=== PATIENT | male | born 1970 | race Two or more races ===

== ENCOUNTER 2020-07-03 17:12 | Outpatient (REF) | payer OTHER, SELFPAY | END 2020-07-03 17:13 | disposition home or self-care (01) | LOC: HO.LAB 17:12 | PROVIDERS: PCP Internal Medicine; Visit Provider Internal Medicine | DX: Z20.828 Contact with and (suspected) exposure to other viral communicable diseases (principal) | CPT/HCPCS: 36415; C9803; U0003 ==

== ENCOUNTER 2020-07-16 14:27 | Outpatient (REF) | payer OTHER, SELFPAY | END 2020-07-16 14:28 | disposition home or self-care (01) | LOC: HO.LAB 14:27 | PROVIDERS: PCP Internal Medicine; Visit Provider Internal Medicine | DX: Z20.822 Contact with and (suspected) exposure to COVID-19 (principal) | CPT/HCPCS: 36415; C9803; U0003 ==

== ENCOUNTER 2020-10-04 18:44 | Outpatient (REF) | payer OTHER, SELFPAY ==
[2020-10-04 19:29] LABS: Influenza A PCR NEGATIVE (Negative); Influenza B PCR NEGATIVE (Negative); Resp Syncy Virus RNA Qual PCR NEGATIVE (Negative); SARS COV2 PCR INHOUSE NEGATIVE (Negative)
== END 2020-10-04 18:45 | disposition home or self-care (01) ==
LOC: HO.LNP 18:44
PROVIDERS: Visit Provider Family Medicine
DX: Z20.822 Contact with and (suspected) exposure to COVID-19 (principal); J02.9 Acute pharyngitis, unspecified
CPT/HCPCS: 0241U

== ENCOUNTER 2021-09-15 19:36 | Emergency (ER) | payer MEDICARE, MEDICAID, SELFPAY | END 2021-09-15 20:08 | disposition left against medical advice (07) | PROVIDERS: Emergency Provider Emergency Medicine; PCP Internal Medicine | DX: S05.90XA Unspecified injury of unspecified eye and orbit, initial encounter (principal); X58.XXXA Exposure to other specified factors, initial encounter; Y93.9 Activity, unspecified; Y92.9 Unspecified place or not applicable; Y99.9 Unspecified external cause status ==

== ENCOUNTER 2021-09-22 12:21 | Outpatient (REF) | payer MEDICARE, MEDICAID, SELFPAY ==
[2021-09-22 12:37] LABS: MANUAL DIFF FLAG NO
[2021-09-22 12:49] LABS: Basophils Percent Auto 0.2 % (0-2); Eosinophils Absolute Auto 0.1 X10*3/uL (0.0-0.4); Eosinophils Percent Auto 1.3 % (0-4); Hematocrit 43.9 % (42.0-52.0); Hemoglobin 14.9 g/dl (14.0-18.0); Imm Gran Abs Auto 0.01 X10*3/uL (0.00-0.03); Imm Gran Pct Auto 0.2 % (0.0-0.4); Lymphocytes Absolute Auto 2.7 X10*3/uL (1.2-4.9); Mean Corpuscular HGB Conc 33.9 g/dl (31.0-36.0); Mean Corpuscular Hemoglobin 30.3 pg (27.0-33.0); Mean Corpuscular Volume 89.4 fL (80.0-98.0); Mean Platelet Volume 9.3 fL (9.4-12.4); Monocytes Absolute Auto 0.4 X10*3/uL (0.1-1.2); Monocytes Percent Auto 8.4 % (2-11); Neutrophils Percent Auto 37.9 % (45-73); Platelet Count 216 X10*3/uL (160-400); Red Blood Count 4.91 X10*6/uL (4.60-5.80); Red Cell Distribution Width 12.1 % (11.0-16.0); White Blood Count 5.2 X10*3/uL (4.8-10.8)
[2021-09-22 13:45] LABS: Alanine Aminotransferase 21 U/L (0-40); Albumin Level 4.4 g/dL (3.5-5.0); Alkaline Phosphatase 64 U/L (39-117); Anion Gap 9 (12-20); Aspartate Amino Transferase 26 U/L (5-37); Bilirubin Total 1.3 mg/dL (0.0-1.0); Blood Urea Nitrogen 6 mg/dL (9-16); Calcium 9.7 mg/dL (8.4-10.2); Carbon Dioxide 30 mmol/L (22-29); Chloride 102 mmol/L (96-108); Cholesterol 215 mg/dL; Estimated Glomerular Filt Rate 59; Glucose Fasting 166 mg/dL (60-99); HDL Cholesterol 38 mg/dL; LDL Cholesterol Calculated 136 mg/dl; Potassium 4.1 mmol/L (3.3-5.1); Sodium 137 mmol/L (135-145); Total Protein 7.6 g/dL (6.5-8.0); Triglycerides 209 mg/dL
== END 2021-09-22 12:22 | disposition home or self-care (01) ==
LOC: HO.LAB 12:21
PROVIDERS: PCP Internal Medicine; Visit Provider Internal Medicine
DX: E66.9 Obesity, unspecified (principal); E78.5 Hyperlipidemia, unspecified; D64.9 Anemia, unspecified
CPT/HCPCS: 36415; 80053; 80061; 85025

== ENCOUNTER 2022-06-08 15:50 | Outpatient (REF) | payer MEDICARE, MEDICAID, SELFPAY ==
[2022-06-09 13:25] LABS: Influenza A PCR NEGATIVE (Negative); Influenza B PCR NEGATIVE (Negative); Resp Syncy Virus RNA Qual PCR NEGATIVE (Negative); SARS COV2 PCR INHOUSE NEGATIVE (Negative)
== END 2022-06-08 15:51 | disposition home or self-care (01) ==
LOC: HO.LAB 15:50
PROVIDERS: Visit Provider Nurse Practitioner Family
DX: Z20.822 Contact with and (suspected) exposure to COVID-19 (principal); J06.9 Acute upper respiratory infection, unspecified
CPT/HCPCS: 0241U

== ENCOUNTER 2022-09-10 16:27 | Outpatient (REF) | payer MEDICARE, MEDICAID, SELFPAY ==
[2022-09-11 15:06] LABS: Influenza A PCR NEGATIVE (Negative); Influenza B PCR NEGATIVE (Negative); Resp Syncy Virus RNA Qual PCR NEGATIVE (Negative); SARS COV2 PCR INHOUSE NEGATIVE (Negative)
== END 2022-09-10 16:28 | disposition home or self-care (01) ==
LOC: HO.LAB 16:27
PROVIDERS: Visit Provider Nurse Practitioner Family
DX: Z20.822 Contact with and (suspected) exposure to COVID-19 (principal); B34.9 Viral infection, unspecified; J02.0 Streptococcal pharyngitis
CPT/HCPCS: 0241U

== ENCOUNTER 2022-12-23 14:53 | Outpatient (REF) | payer MEDICARE, MEDICAID, SELFPAY ==
--- NOTE | ~2022-12-23 | US_ITS ---
EXAMINATION: US VENOUS ULTRASOUND WITH DOPPLER LOWER EXTREMITY, LEFT CLINICAL INFORMATION: Left leg pain. COMPARISON: None available. TECHNIQUE: Ultrasound of the deep veins is performed from the hip to the calf with compression sonography and color and pulse Doppler assessment. Spectral analysis with color-flow imaging is performed. FINDINGS: There is normal venous compression and respiratory variation and augmented flow. The visualized common femoral vein, superficial femoral vein, profunda femoral vein, popliteal vein, and the trifurcation region shows no evidence of deep venous thrombosis. The area of pain left lateral midcalf was sonographically interrogated. There is no focal sonographic abnormality. If the patient's symptoms persist, followup ultrasound in 5 days 7 days might be of value to exclude proximal propagation from a non-visualized calf vein. US/US venous duplex LE IMPRESSION: No DVT demonstrated in the left lower extremity.
== END 2022-12-23 14:54 | disposition home or self-care (01) ==
LOC: HO.US 14:53
PROVIDERS: PCP Internal Medicine; Visit Provider Internal Medicine
DX: M79.605 Pain in left leg (principal)
CPT/HCPCS: 93971

== ENCOUNTER 2023-02-24 16:56 | Outpatient (AMB) | payer MEDICARE, MEDICAID, SELFPAY ==
--- NOTE | 2023-02-24 16:59 | A.OFFPC_ITS ---
Vital Signs 02/24/23 17:00 Height 5 ft 9 in Weight 248 lb BMI 36.6 BP 130/82 Blood Pressure Location Lt brachial Position Sitting Intake Visit Reasons: Nasal congestion/pain Intake Note: Patient here for nasal congestion/ pain Nps Required: No Accompanied by: Self / Same As Patient Allergies No Known Allergies [No Known Allergies*] Allergy (Verified 02/24/23 17:11) Medication List - Last Reconciled 02/24/23 by Michelle Watson MD albuterol sulfate 2.5 mg (3 mL) inhalation Q6H PRN 30 days bisacodyl 20 mg PO DIRECTED blood sugar diagnostic (FreeStyle Lite Strips) Use 1 test strip once a day blood-glucose meter (FreeStyle Lite Meter kit) As directed clonazepam 2 mg PO BID 30 days clotrimazole 1% (Athlete's Foot (clotrimazole)) 1 appl topical BID 2 weeks diclofenac sodium 1% 2 grams topical QID 30 days escitalopram oxalate 10 mg PO DAILY 90 days famotidine 20 mg PO BEDTIME 90 days fluticasone propionate 50 mcg/actuation 1 spray intranasal DAILY 30 days fluticasone propionate 110 mcg/actuation 2 puffs PO BID 30 days ibuprofen 800 mg PO TID PRN lancets (FreeStyle Lancets) Use 2 lancet once a day levalbuterol tartrate 45 mcg/actuation 2 inhalations inhalation Q6H 30 days montelukast 10 mg PO BEDTIME 90 days nebulizers As directed omeprazole 20 mg PO QAM 90 days ondansetron HCl 4 mg PO BID PRN 30 days oxycodone-acetaminophen 10-325 mg tabs PO sumatriptan succinate 100 mg PO DAILY PRN 90 days trazodone 50 mg PO BEDTIME PRN 90 days zolpidem 10 mg PO BEDTIME PRN 30 days Tobacco use date assessed: 12/23/22 Dental Screening Dental Screen Date: 02/24/23 Did you have a dental visit in the last 12 months?: No Did you have a dental problem in the last 6 months where you did not have access to dental care?: No Was dental information given to patient?: Patient has dentist HPI HPI Comments History of Present Illness Details This is a 52-year-old male with GERD, anxiety and mild recurrent major depression that complains sinus tenderness and nasal congestion that started about a week ago. Will start doxycycline. No fever or cough. Depression stable with escitalopram. Anxiety stable with benzodiazepines as needed. GERD stable with PPIs. [facility] Medical History Anxiety Asthma Back pain Fissure in ano Insomnia Migraines Mild recurrent major depression Mixed hyperlipidemia Obesity (BMI 30-39.9) Screen for colon cancer Sinusitis Surgical History History of back surgery Hx of cataract surgery Family History Father No problems noted. Mother No problems noted. Social History Housing: Apartment Alcohol intake: former Patient Tobacco Use Status: Never used Tobacco e-Cigarette/Vaping Use: Never Used Second Hand Smoke Exposure: No service: No Current occupational status: disabled Cognitive needs: No Hearing needs: No Vision needs: No Questionnaire Thrive Questionnaire Date Thrive assessed: 12/23/22 LUISA-7 AMB Questionnaire LUISA-7 Date LUISA - 7 assessed: 12/23/22 Source: Developed by Drs. Bipin Bach, Gifty Rasmussen, Marc Arzola and colleagues, with an educational pa from [employer]. Review of Systems Const All systems reviewed & are unremarkable except as noted in HPI and below Eyes Reports no additional complaints, Denies change in vision and Denies other visual disturbances Card Denies chest pain at rest, Denies chest pain with activity, Denies edema, Denies irregular heart rhythm, Denies claudication, Denies dyspnea, Denies dyspnea on exertion, Denies orthopnea, Denies paroxysmal nocturnal dyspnea and Denies slow heart rate Resp Denies cough, Denies dyspnea and Denies dyspnea on exertion GI Denies abdominal pain, Denies change in bowel habits, Denies excessive flatus, Denies nausea and Denies vomiting Denies urinary hesitancy, Denies urinary incontinence and Denies urinary urgency Musc Denies abnormal gait, Denies atrophy, Denies deformity and Denies limited range of motion Skin/Breast Denies bleeding lesions, Denies changing lesions and Denies rash Neuro Denies abnormal gait and Denies lack of coordination Physical exam (Primary Care) Vital Signs: Last Vital Signs BP 130/82 02/24/23 17:00 BMI result Body Mass Index 36.6 Tobacco/Smoking Status: Tobacco use Status Tobacco use date assessed 12/23/22 02/24/23 17:04 Patient Tobacco Use Status Never used Tobacco 02/24/23 17:04 e-Cigarette/Vaping Use Never Used 02/24/23 17:04 Thrive Assessment: Date of Thrive Assessment Date Thrive assessed 12/23/22 02/24/23 17:04 Eyes General: appearance normal, both eyes and all related structures Eyelids: Yes eyelids normal Conjunctivae: conjunctivae normal Neck Neck: Yes normal visual inspection and Yes supple Resp Effort & Inspection: normal respiratory effort Auscultation: clear to auscultation bilaterally Cardio Jugular venous distension: no JVD Rate: regular rate Rhythm: regular rhythm Heart sounds: S1 normal heart sound present and S2 normal heart sound present Extrem General: Yes full ROM Assessment and Plan Assessment & Plan (1) Chronic GERD: Code(s): K21.9 - Gastro-esophageal reflux disease without esophagitis Plan: Continue PPIs (2) Mild recurrent major depression: Code(s): F33.0 - Major depressive disorder, recurrent, mild Plan: Continue escitalopram (3) Sinus infection: Code(s): J32.9 - Chronic sinusitis, unspecified Qualifiers: Sinusitis location: frontal Chronicity: subacute Qualified Code(s): J01.10 - Acute frontal sinusitis, unspecified Plan: Start doxycycline (4) Anxiety: Code(s): F41.9 - Anxiety disorder, unspecified Plan: Continue benzodiazepines as needed Orders: Orders XR sinus <3V Today J34.89 - Other specified disorders of nose and nasal sinuses Comprehensive [place]. Panel Fast 4 Months K21.9 - Gastro-esophageal reflux disease without esophagitis Lipid Panel 4 Months E78.5 - Hyperlipidemia, unspecified Medications: New doxycycline hyclate 100 mg PO BID 5 days 10 tabs 0RF cetirizine (All Day Allergy (cetirizine)) 10 mg PO DAILY 90 days PRN 90 tabs 1RF allergy symptoms Coding Level of Care Code Est Pt Level 4 (71041) Diagnoses Chronic GERD K21.9 Mild recurrent major depression F33.0 Sinus infection J01.10 Sinusitis location: frontal Chronicity: subacute Anxiety F41.9 Time Spent (min) 23
[2023-02-24 17:00] VITALS: BP 130/82; BMI 36.6
== END 2023-02-24 17:29 | disposition home or self-care (01) ==
PROVIDERS: PCP Internal Medicine; Visit Provider Internal Medicine
DX: K21.9 Gastro-esophageal reflux disease without esophagitis (principal); F33.0 Major depressive disorder, recurrent, mild; J01.10 Acute frontal sinusitis, unspecified; F41.9 Anxiety disorder, unspecified
CPT/HCPCS: 99214

== ENCOUNTER 2023-06-01 17:20 | Outpatient (AMB) | payer MEDICARE, MEDICAID, SELFPAY ==
[2023-06-01 17:28] VITALS: BP 110/78; BMI 35.7
--- NOTE | 2023-06-01 17:28 | MHC.PC.OV ---
Vital Signs 06/01/23 17:28 Height 5 ft 9 in Weight 242 lb BMI 35.7 BP 110/78 Blood Pressure Location Lt brachial Position Sitting Intake Visit Reasons: Annual Exam Intake Note: Patient here for an annual physical exam [place] Required: No Accompanied by: Self / Same As Patient Allergies No Known Allergies [No Known Allergies*] Allergy (Verified 06/01/23 17:39) Medication List - Last Reconciled 06/01/23 by Michelle Watson MD albuterol sulfate 2.5 mg (3 mL) inhalation Q6H PRN 30 days blood sugar diagnostic (FreeStyle Lite Strips) Use 1 test strip once a day blood-glucose meter (FreeStyle Lite Meter kit) As directed cetirizine (All Day Allergy (cetirizine)) 10 mg PO DAILY PRN 90 days clonazepam 2 mg PO BID 30 days clotrimazole 1% (Athlete's Foot (clotrimazole)) 1 appl topical BID 2 weeks diclofenac sodium 1% 2 grams topical QID 30 days escitalopram oxalate 10 mg PO DAILY 90 days famotidine 20 mg PO BEDTIME 90 days fluticasone propionate 110 mcg/actuation 2 puffs PO BID 30 days fluticasone propionate 50 mcg/actuation 1 spray intranasal DAILY 30 days ibuprofen 800 mg PO TID PRN lancets (FreeStyle Lancets) Use 2 lancet once a day levalbuterol tartrate 45 mcg/actuation 2 inhalations inhalation Q6H 30 days montelukast 10 mg PO BEDTIME 90 days nebulizers As directed omeprazole 20 mg PO QAM 90 days ondansetron HCl 4 mg PO BID PRN 30 days oxycodone-acetaminophen 10-325 mg tabs PO sumatriptan succinate 100 mg PO DAILY PRN 90 days trazodone 50 mg PO BEDTIME PRN 90 days zolpidem 10 mg PO BEDTIME PRN 30 days Tobacco use date assessed: 12/23/22 Dental Screening Dental Screen Date: 06/01/23 Did you have a dental visit in the last 12 months?: No Did you have a dental problem in the last 6 months where you did not have access to dental care?: No Was dental information given to patient?: Patient has dentist HPI HPI Comments History of Present Illness Details This is a 52-year-old male with mild recurrent major depression that comes for his physical exam. Depression stable with medications and this is follow by counseling. Has never had a colonoscopy and will prefer Cologuard. No chest pain or shortness of breath. [facility] Medical History Mild recurrent major depression Mixed hyperlipidemia Screen for colon cancer Migraines Obesity (BMI 30-39.9) Insomnia Sinusitis Anxiety Fissure in ano Back pain Asthma Surgical History (Updated 06/01/23 @ 17:43 by Michelle Watson MD) History of eye surgery History of back surgery Family History Father No problems noted. Mother No problems noted. Social History Housing: Apartment Alcohol intake: former Patient Tobacco Use Status: Never used Tobacco e-Cigarette/Vaping Use: Never Used Second Hand Smoke Exposure: No service: No Current occupational status: disabled Cognitive needs: No Hearing needs: No Vision needs: No Questionnaire Thrive Questionnaire Date Thrive assessed: 12/23/22 LUISA-7 AMB Questionnaire LUISA-7 Date LUISA - 7 assessed: 12/23/22 Source: Developed by Drs. Bipin Bach, Gifty Rasmussen, Marc Arzola and colleagues, with an educational pa from [employer]. Review of Systems Const All systems reviewed & are unremarkable except as noted in HPI and below Eyes Reports no additional complaints, Denies change in vision and Denies other visual disturbances Card Denies chest pain at rest, Denies chest pain with activity, Denies edema, Denies irregular heart rhythm, Denies claudication, Denies dyspnea, Denies dyspnea on exertion, Denies orthopnea, Denies paroxysmal nocturnal dyspnea and Denies slow heart rate Resp Denies cough, Denies dyspnea and Denies dyspnea on exertion GI Denies abdominal pain, Denies change in bowel habits, Denies excessive flatus, Denies nausea and Denies vomiting Denies urinary hesitancy, Denies urinary incontinence and Denies urinary urgency Musc Denies abnormal gait, Denies atrophy, Denies deformity and Denies limited range of motion Skin/Breast Denies bleeding lesions, Denies changing lesions and Denies rash Neuro Denies abnormal gait, Denies behavioral changes, Denies confusion and Denies lack of coordination Psych Denies behavioral changes and Denies confusion Physical exam (Primary Care) Vital Signs: Last Vital Signs BP 110/78 06/01/23 17:28 BMI result Body Mass Index 35.7 Tobacco/Smoking Status: Tobacco use Status Tobacco use date assessed 12/23/22 06/01/23 17:35 Patient Tobacco Use Status Never used Tobacco 06/01/23 17:35 e-Cigarette/Vaping Use Never Used 06/01/23 17:35 Thrive Assessment: Date of Thrive Assessment Date Thrive assessed 12/23/22 06/01/23 17:35 Const General: No confusion Orientation/consciousness: patient oriented x3 and No confusion HENMT Head: Yes normal to inspection, Yes normocephalic and Yes atraumatic Ears: external ears normal Eyes General: appearance normal, both eyes and all related structures Eyelids: Yes eyelids normal Conjunctivae: conjunctivae normal Neck Neck: Yes normal visual inspection and Yes supple Resp Effort & Inspection: normal respiratory effort Auscultation: clear to auscultation bilaterally Cardio Jugular venous distension: no JVD Rate: regular rate Rhythm: regular rhythm Heart sounds: S1 normal heart sound present and S2 normal heart sound present GI Inspection: Yes normal to inspection Palpation (GI): Soft to palpation and nontender Auscultation: normal bowel sounds Skin General skin exam: no rashes or lesions noted Neuro General: patient oriented x3, no focal motor deficits and No confusion Extrem General: Yes full ROM Psych Appearance: grossly normal Office Procedures Flu Questionnaire Does the patient have a severe egg allergy?: No Immunizations flu vacc [id number] 6mos up(PF) 60 mcg(15 mcgx4)/0.5 mL IM syringe Performing Provider: Michelle Watson MD [facility] Documented (not given) by: DEL Hatfield on 06/01/23 17:56 Reason Not Given: Patient Refused Assessment and Plan Assessment & Plan (1) Physical exam: Code(s): Z00.00 - Encounter for general adult medical examination without abnormal findings Plan: Repeat in a year. (2) Mild recurrent major depression: Code(s): F33.0 - Major depressive disorder, recurrent, mild Plan: Continue escitalopram. Orders: Orders Influenza [id number] Immunization Today Z23 - Encounter for immunization Lipid Panel Today E78.5 - Hyperlipidemia, unspecified Microalbumin, Random (w Creat) Today E11.9 - Type 2 diabetes mellitus without complications Vitamin D 25-OH Total Today E55.9 - Vitamin D deficiency, unspecified Comprehensive [place]. Panel Fast Today Z00.00 - Encounter for general adult medical examination without abnormal findings Referrals Cologuard Test Z12.11 - Encounter for screening for malignant neoplasm of colon, Z12.12 - Encounter for screening for malignant neoplasm of rectum Medications: Refilled fluticasone propionate 110 mcg/actuation 2 puffs PO BID 12 grams 6RF 30 days fluticasone propionate 50 mcg/actuation 1 spray intranasal DAILY 16 grams 1RF 30 days cetirizine (All Day Allergy (cetirizine)) 10 mg PO DAILY PRN 90 tabs 1RF allergy symptoms 90 days ondansetron HCl 4 mg PO BID PRN 60 tabs 0RF nausea and vomiting 30 days omeprazole 20 mg PO QAM 90 caps 1RF 90 days montelukast 10 mg PO BEDTIME 90 tabs 3RF 90 days levalbuterol tartrate 45 mcg/actuation 2 inhalations inhalation Q6H 15 grams 1RF 30 days Coding Level of Care Code Est Pt Prev Care 40-64y(83385) Diagnoses Physical exam Z00.00 Mild recurrent major depression F33.0 Time Spent (min) 34
== END 2023-06-01 17:49 | disposition home or self-care (01) ==
LOC: HO.HMGH 17:20
PROVIDERS: PCP Internal Medicine; Visit Provider Internal Medicine
DX: Z00.00 Encounter for general adult medical examination without abnormal findings (principal); F33.0 Major depressive disorder, recurrent, mild
CPT/HCPCS: 99396

== ENCOUNTER → 2023-08-18 12:57 | Outpatient (AMB) | payer MEDICARE, MEDICAID, SELFPAY ==
--- NOTE | 2023-08-18 13:06 | MHC.OFFWIV ---
Intake Vital Signs 08/18/23 13:19 Weight 245 lb BP 114/76 Blood Pressure Location Rt brachial Position Sitting Respiration 13 Pulse 86 Pulse Source Pulse Oximeter Temp 100.0 F Temp Source Temporal Artery Scan Pulse Oximetry (%) 96 Oxygen Delivery Method Simple Mask Intake Visit Reasons: ? sinus infection Intake Note: Patient reports having sinus pressure, heachache and intermittent dizziness x14 days. Patient Tobacco Use Status: Never used Tobacco [employer] Required: Yes [employer] Name: Dionicio ([id number]) Accompanied by: Self / Same As Patient Allergies No Known Allergies [No Known Allergies*] Allergy (Verified 08/18/23 13:23) Medication List - Last Reconciled 08/18/23 by Leanna Arrington, MARKETING REPRESENTATIVE- albuterol sulfate 2.5 mg (3 mL) inhalation Q6H PRN 30 days blood sugar diagnostic (FreeStyle Lite Strips) Use 1 test strip once a day blood-glucose meter (FreeStyle Lite Meter kit) As directed cetirizine (All Day Allergy (cetirizine)) 10 mg PO DAILY PRN 90 days clonazepam 2 mg PO BID 30 days clotrimazole 1% (Athlete's Foot (clotrimazole)) 1 appl topical BID 2 weeks diclofenac sodium 1% 2 grams topical QID 30 days escitalopram oxalate 10 mg PO DAILY 90 days famotidine 20 mg PO BEDTIME 90 days fluticasone propionate 50 mcg/actuation 1 spray intranasal DAILY 30 days fluticasone propionate 110 mcg/actuation 2 puffs PO BID 30 days ibuprofen 800 mg PO TID PRN lancets (FreeStyle Lancets) Use 2 lancet once a day levalbuterol tartrate 45 mcg/actuation 2 inhalations inhalation Q6H 30 days montelukast 10 mg PO BEDTIME 90 days nebulizers As directed omeprazole 20 mg PO QAM 90 days ondansetron HCl 4 mg PO BID PRN 30 days oxycodone-acetaminophen 10-325 mg tabs PO sumatriptan succinate 100 mg PO DAILY PRN 90 days trazodone 50 mg PO BEDTIME PRN 90 days zolpidem 10 mg PO BEDTIME PRN 30 days HPI HPI Comments History of Present Illness Details Here today with the help of street superintendent Dionicio ID [id number] Patient complains of URI symptoms greater than 2 weeks ago. After the resolution he developed sinus pressure and congestion. He feels pain in his cheeks as well as his ears. Right ear has mild pain. Admits some postnasal drip causing a mild sore throat. Denies fever chills cough. Reports he gets sinus infections 1 to 2 times a year. Tried Zyrtec along with Flonase to help his congestion before coming into the office today [facility] Medical History Mild recurrent major depression Mixed hyperlipidemia Screen for colon cancer Migraines Obesity (BMI 30-39.9) Insomnia Sinusitis Anxiety Fissure in ano Back pain Asthma Surgical History (Updated 06/01/23 @ 17:43 by Michelle Watson MD) History of eye surgery History of back surgery Family History Father No problems noted. Mother No problems noted. Social History Housing: Apartment Alcohol intake: former Patient Tobacco Use Status: Never used Tobacco e-Cigarette/Vaping Use: Never Used Second Hand Smoke Exposure: No service: No Current occupational status: disabled Cognitive needs: No Hearing needs: No Vision needs: No Review of Systems Const All systems reviewed & are unremarkable except as noted in HPI and below Physical Exam Vital Signs: Last Vital Signs Temp 100.0 F 08/18/23 13:19 Pulse 86 08/18/23 13:19 Resp 13 08/18/23 13:19 BP 114/76 08/18/23 13:19 Pulse Ox 96 08/18/23 13:19 Oxygen Delivery Method Simple Mask 08/18/23 13:19 Const Other: Awake alert NAD Sclera and conjunctiva clear bilat TM intact bilat, mild injection on the right side, mucoid effusions bilat Nares with mucoid discharge, turbinates erythematous and edematous, maxillary and frontal sinus tenderness with palpation MMM, pharynx WNL RRR LS CTAB Assessment & Plan Assessment & Plan (1) Sinus infection: Code(s): J32.9 - Chronic sinusitis, unspecified Qualifiers: Sinusitis location: frontal Chronicity: subacute Qualified Code(s): J01.10 - Acute frontal sinusitis, unspecified Plan . This note is constructed using voice recognition software. While every effort has been made to ensure accuracy in audiology doctor, still errors may have been included Sometimes, these errors may affect the content or meaning of the given sentence . Total time spent caring for the patient today was 30 minutes. This includes time spent before the visit reviewing the chart, time spent during the visit, and time spent after the visit on documentation Medications: New amoxicillin-pot clavulanate 875-125 mg 1 tab PO BID 7 days 14 tabs 0RF Coding Level of Care Code Est Pt Level 4 (73072) Diagnoses Subacute frontal sinusitis J01.10 Sinusitis location: frontal Chronicity: subacute
[2023-08-18 13:19] VITALS: BP 114/76; PULSE 86; RESP 13; TEMP 37.8; O2SAT 96
== END ==
PROVIDERS: PCP Internal Medicine; Visit Provider Nurse Practitioner Family
DX: J01.10 Acute frontal sinusitis, unspecified (principal)
CPT/HCPCS: 99214

== ENCOUNTER 2024-01-25 14:39 | Outpatient (AMB) | payer MEDICARE, MEDICAID, SELFPAY ==
--- NOTE | 2024-01-25 14:42 | AM.OFFWIN_ITS ---
Intake Vital Signs 01/25/24 14:44 Height 5 ft 9 in Weight 264 lb BMI 39.0 BP 128/84 Blood Pressure Location Lt brachial Position Sitting Pulse 89 Pulse Source Pulse Oximeter Temp 98.5 F Temp Source Oral Pulse Oximetry (%) 98 Oxygen Delivery Method Room Air Intake Visit Reasons: inflammation of feet and cheeks Intake Note: pt c/o swelling of feet and cheeks. Started last week Patient Tobacco Use Status: Never used Tobacco Allergies No Known Allergies [No Known Allergies*] Allergy (Verified 01/25/24 14:42) Do you need a note to return to daycare/school/sports/work: No HPI HPI Comments History of Present Illness Details 53-year-old male presents today complain ing of edema in his face and feet that started 5 days ago but have since resolved. He states he has eaten a lot of pastrami which is out of the ordinary for him. He has not added any new meds does not take any [id number] supplements. No new foods with the exception of the pastrami he also says he has some mild epigastric pain [facility] Medical History (Updated 01/25/24 @ 15:16 by MATTIE Alvarez) Mild recurrent major depression Mixed hyperlipidemia Screen for colon cancer Migraines Obesity (BMI 30-39.9) Insomnia Sinusitis Anxiety Fissure in ano Back pain Asthma Surgical History (Updated 06/01/23 @ 17:43 by Michelle Watson MD) History of eye surgery History of back surgery Family History Father No problems noted. Mother No problems noted. Social History Housing: Apartment Alcohol intake: former Patient Tobacco Use Status: Never used Tobacco e-Cigarette/Vaping Use: Never Used Second Hand Smoke Exposure: No service: No Current occupational status: disabled Cognitive needs: No Hearing needs: No Vision needs: No Review of Systems Const All systems reviewed & are unremarkable except as noted in HPI and below Eyes Reports no additional complaints ENT Reports no additional complaints Card Reports no additional complaints Resp Reports no additional complaints GI Reports abdominal pain (Mild epigastric) Physical Exam Vital Signs: Last Vital Signs Temp 98.5 F 01/25/24 14:44 Pulse 89 01/25/24 14:44 BP 128/84 01/25/24 14:44 Pulse Ox 98 01/25/24 14:44 Oxygen Delivery Method Room Air 01/25/24 14:44 BMI result Body Mass Index 39.0 Const General: healthy appearing and no acute distress HEENT Head: Yes normal to inspection, Yes normocephalic and Yes atraumatic Ears: hearing grossly normal bilaterally General nose exam: Normal external nose present Face and sinus: Yes normal facial exam and Yes face symmetric Throat: Yes posterior oropharynx normal Eyes General: appearance normal, both eyes and all related structures Eyelids: Yes eyelids normal Conjunctivae: conjunctivae normal Sclerae: sclerae normal Corneas: corneas normal Pupils: Equal, round and reactive pupils present Resp Effort & Inspection: normal respiratory effort Auscultation: clear to auscultation bilaterally Cardio Rate: regular rate Rhythm: regular rhythm Heart sounds: S1 normal heart sound present and S2 normal heart sound present Neuro Cranial nerves: Yes Equal, round and reactive pupils present Extrem General: Yes normal to inspection, Yes full ROM and Yes no pedal edema (1+ edema bilaterally) Assessment & Plan Assessment & Plan (1) Epigastric pain: Code(s): R10.13 - Epigastric pain Plan: I ordered some lab work to rule out cholecystitis. I have also suggested he discontinue the pastrami overload and follow up with his PCP when the lab work returns Orders: Orders Complete Blood Count Auto Diff Today R10.13 - Epigastric pain Comprehensive Met. Panel Today R10.13 - Epigastric pain Amylase Today R10.13 - Epigastric pain Lipase Today R10.13 - Epigastric pain Coding Level of Care Code Est Pt Level 3 (50158) Diagnoses Epigastric pain R10.13
[2024-01-25 14:44] VITALS: BP 128/84; PULSE 89; TEMP 36.9; O2SAT 98; BMI 39.0
== END 2024-01-25 16:18 | disposition home or self-care (01) ==
PROVIDERS: PCP Internal Medicine; Visit Provider Physician Assistant Medical
DX: R10.13 Epigastric pain (principal); R60.9 Edema, unspecified
CPT/HCPCS: 99213

== ENCOUNTER 2024-01-25 15:16 | Outpatient (REF) | payer MEDICARE, MEDICAID, SELFPAY ==
[2024-01-25 16:11] LABS: MANUAL DIFF FLAG NO
[2024-01-25 16:34] LABS: Basophils Percent Auto 0.3 % (0-2); Eosinophils Percent Auto 0.6 % (0-4); Hemoglobin 13.2 g/dl (14.0-18.0); Imm Gran Abs Auto 0.02 X10*3/uL (0.00-0.03); Imm Gran Pct Auto 0.3 % (0.0-0.4); Lymphocytes Absolute Auto 2.1 X10*3/uL (1.2-4.9); Lymphocytes Percent Auto 32.3 % (20-40); Mean Corpuscular HGB Conc 33.8 g/dl (31.0-36.0); Mean Corpuscular Hemoglobin 31.1 pg (27.0-33.0); Mean Platelet Volume 9.4 fL (9.4-12.4); Monocytes Absolute Auto 0.7 X10*3/uL (0.1-1.2); Monocytes Percent Auto 10.2 % (2-11); Neutrophils Absolute Auto 3.6 x10*3/uL (2.0-8.3); Neutrophils Percent Auto 56.3 % (45-73); Platelet Count 204 X10*3/uL (160-400); Red Blood Count 4.24 X10*6/uL (4.60-5.80); Red Cell Distribution Width 13.2 % (11.0-16.0); White Blood Count 6.4 X10*3/uL (4.8-10.8)
[2024-01-25 16:59] LABS: Alanine Aminotransferase 51 U/L (0-40); Albumin Level 3.9 g/dL (3.5-5.0); Alkaline Phosphatase 55 U/L (39-117); Amylase 95 U/L (28-100); Anion Gap 8 (12-20); Aspartate Amino Transferase 38 U/L (5-37); Bilirubin Total 0.7 mg/dL (0.0-1.0); Blood Urea Nitrogen 11 mg/dL (9-16); Calcium 9.3 mg/dL (8.4-10.2); Carbon Dioxide 35 mmol/L (22-29); Chloride 102 mmol/L (96-108); Estimated Glomerular Filt Rate > 60; Glucose Random 109 mg/dL (60-115); Lipase 34 U/L (8-78); Potassium 4.1 mmol/L (3.3-5.1); Sodium 141 mmol/L (135-145); Total Protein 6.8 g/dL (6.5-8.0)
== END 2024-01-25 15:17 | disposition home or self-care (01) ==
LOC: HO.HMGCLDS 15:16
PROVIDERS: PCP Internal Medicine; Visit Provider Physician Assistant Medical
DX: R10.13 Epigastric pain (principal)
CPT/HCPCS: 36415; 80053; 82150; 83690; 85025

== ENCOUNTER 2024-02-02 08:53 | Outpatient (AMB) | payer MEDICARE, MEDICAID, SELFPAY ==
--- NOTE | 2024-02-02 08:57 | MHC.PC.OV ---
Vital Signs 02/02/24 09:02 Height 5 ft 9 in Weight 252 lb BMI 37.2 BP 122/86 Blood Pressure Location Lt brachial Position Sitting Intake Visit Reasons: walk-in f/u 01/24 swollen feet/face sore throat Gang Drill Operator Required: No Accompanied by: Self / Same As Patient Allergies No Known Allergies [No Known Allergies*] Allergy (Verified 02/02/24 09:24) Medication List - Last Reconciled 02/02/24 by Michelle Watson MD albuterol sulfate 2.5 mg (3 mL) inhalation Q6H PRN 30 days blood sugar diagnostic (FreeStyle Lite Strips) Use 1 test strip once a day blood-glucose meter (FreeStyle Lite Meter kit) As directed cetirizine (All Day Allergy (cetirizine)) 10 mg PO DAILY PRN 90 days clonazepam 2 mg PO BID 30 days clotrimazole 1% (Athlete's Foot (clotrimazole)) 1 appl topical BID 2 weeks escitalopram oxalate 10 mg PO DAILY 90 days famotidine 20 mg PO BEDTIME 90 days fluticasone propionate 110 mcg/actuation 2 puffs PO BID 30 days fluticasone propionate 50 mcg/actuation 1 spray intranasal DAILY 30 days ibuprofen 800 mg PO TID PRN lancets (FreeStyle Lancets) Use 2 lancet once a day levalbuterol tartrate 45 mcg/actuation 2 inhalations inhalation Q6H 30 days [lunderg side grab bar As directed] montelukast 10 mg PO BEDTIME 90 days nebulizers As directed omeprazole 20 mg PO QAM 90 days ondansetron HCl 4 mg PO BID PRN 30 days oxycodone mg PO oxycodone-acetaminophen 10-325 mg tabs PO [Shower chair As directed] trazodone 50 mg PO BEDTIME PRN 90 days zolpidem 10 mg PO BEDTIME PRN 30 days Tobacco use date assessed: 02/02/24 Dental Screening Dental Screen Date: 02/02/24 Did you have a dental visit in the last 12 months?: No Did you have a dental problem in the last 6 months where you did not have access to dental care?: No Was dental information given to patient?: Patient has dentist HPI HPI Comments History of Present Illness Details This is a 53-year-old male with mild recurrent major depression, anxiety and chronic GERD that comes complaining of sinus tenderness that is restarted 2 days ago. He would like an antibiotic. Depression with anxiety stable with medications. Patient is aware that clonazepam can cause addiction, sedation and dementia. GERD stable with PPIs. He is obese with a BMI of 37.2 and was advised to do diet and exercise to reach BMI goal less than 30. [facility] Medical History Mild recurrent major depression Mixed hyperlipidemia Screen for colon cancer Migraines Obesity (BMI 30-39.9) Insomnia Sinusitis Anxiety Fissure in ano Back pain Asthma Surgical History History of eye surgery History of back surgery Family History Father No problems noted. Mother No problems noted. Social History Housing: Apartment Alcohol intake: former Patient Tobacco Use Status: Never used Tobacco e-Cigarette/Vaping Use: Never Used Second Hand Smoke Exposure: No service: No Current occupational status: disabled Cognitive needs: No Hearing needs: No Vision needs: Yes Questionnaire PHQ-9 Over the last 2 weeks, how often have you been bothered by any of the following problems? 1. Little interest or pleasure in doing things: not at all 2. Feeling down, depressed, or hopeless: not at all 3. Trouble falling or staying asleep, or sleeping too much: not at all 4. Feeling tired or having little energy: not at all 5. Poor appetite or overeating: not at all 6. Feeling bad about yourself - or that you are a failure or have let yourself or your family down: not at all 7. Trouble concentrating on things, such as reading the newspaper or watching television: not at all 8. Moving or speaking so slowly that other people could have noticed. Or the opposite - being so fidgety or restless that you have been moving around a lot more than usual: not at all 9. Thoughts that you would be better off or of hurting yourself in some way: not at all Total score: 0 Depression Screening Interpretation: Negative Depression Screening Done: Yes 56949 - PHQ-9 Billing: Yes Source: Developed by Drs. Bipin Bach, Marc Boyd and colleagues, with an educational pa from [employer]. Thrive Questionnaire Date Thrive assessed: 02/02/24 I am a: Patient What is your living situation today?: I have a steady place to live Within the past 12 months, did the food you bought not last and you didn't have the money to get more?: Never true Within the past 12 months, did you worry whether your food would run out before you got money to buy more?: Never true Do you have trouble paying for medicines?: No Do you have trouble getting transportation to medical appointments?: No Do you have trouble paying your heating and electricity bill?: No Do you have trouble taking care of your child, family member or friend?: No Do you have trouble with day-to-day activities such as bathing, preparing meals, shopping, managing finances, etc.?: No Are you currently unemployed and looking for a job?: No Are you interested in more education?: No Please select the resources that you would like help with: None Currently or been in a relationship where the following occur: No concerns reported THRIVE Score: 0 AUDIT C Alcohol Use Questionnaire (AUDIT-C) 1. How often do you have a drink containing alcohol?: Never Total Score: 0 Score Reviewed/Action Taken: No LUISA-7 AMB Questionnaire LUISA-7 Date LUISA - 7 assessed: 02/02/24 Feeling nervous, anxious, or on edge: 0 = Not at all Not being able to stop or control worryin = Not at all Worrying too much about different things: 0 = Not at all Trouble relaxin = Not at all Being so restless that it is hard to sit still: 0 = Not at all Becoming easily annoyed or irritable: 0 = Not at all Feeling afraid as if something awful might happen: 0 = Not at all Total LUISA-7 score (0-4 normal; 5-9 mild; 10-14 moderate; 15-21 severe): 0 Source: Developed by Gifty Molina Kurt Kroenke and colleagues, with an educational pa from [employer]. LUISA-7 Assessment Billing LUISA-7 Assessment Tool: LUISA-7 Assessment 87165 Review of Systems Const All systems reviewed & are unremarkable except as noted in HPI and below Card Denies chest pain at rest, Denies chest pain with activity, Denies edema, Denies irregular heart rhythm, Denies claudication, Denies dyspnea, Denies dyspnea on exertion, Denies orthopnea, Denies paroxysmal nocturnal dyspnea and Denies slow heart rate Resp Denies cough, Denies dyspnea and Denies dyspnea on exertion GI Denies abdominal pain, Denies change in bowel habits, Denies excessive flatus, Denies nausea and Denies vomiting Denies urinary hesitancy, Denies urinary incontinence and Denies urinary urgency Physical exam (Primary Care) Vital Signs: Last Vital Signs BP 122/86 02/02/24 09:02 BMI result Body Mass Index 37.2 BMI Assessment/Plan discussion: High BMI High, discussed plan: lifestyle, weight reduction, dietary and physical activity Tobacco/Smoking Status: Tobacco use Status Tobacco use date assessed 02/02/24 02/02/24 09:10 Patient Tobacco Use Status Never used Tobacco 02/02/24 08:58 e-Cigarette/Vaping Use Never Used 02/02/24 08:58 PHQ-9: PHQ-9 Score PHQ-9: Total score 0 02/02/24 09:27 Depression Screening Interpretation: Negative Thrive Assessment: Date of Thrive Assessment Date Thrive assessed 02/02/24 02/02/24 09:10 Currently or been in a relationship where the following occur: No concerns reported Resp Effort & Inspection: normal respiratory effort Auscultation: clear to auscultation bilaterally Cardio Jugular venous distension: no JVD Rate: regular rate Rhythm: regular rhythm Heart sounds: S1 normal heart sound present and S2 normal heart sound present Extrem General: Yes full ROM Assessment and Plan Assessment & Plan (1) Mild recurrent major depression: Code(s): F33.0 - Major depressive disorder, recurrent, mild Plan: Continue escitalopram. (2) Anxiety: Code(s): F41.9 - Anxiety disorder, unspecified Plan: Continue clonazepam as needed. (3) Sinus infection: Code(s): J32.9 - Chronic sinusitis, unspecified Qualifiers: Sinusitis location: frontal Chronicity: subacute Qualified Code(s): J01.10 - Acute frontal sinusitis, unspecified Plan: Start amoxicillin. (4) Chronic GERD: Code(s): K21.9 - Gastro-esophageal reflux disease without esophagitis Plan: Continue PPIs. Orders: Orders IRON PROFILE 4 Months D64.9 - Anemia, unspecified Comprehensive [place]. Panel Fast 4 Months R10.13 - Epigastric pain Lipid Panel 4 Months E78.5 - Hyperlipidemia, unspecified Complete Blood Count Auto Diff 4 Months D64.9 - Anemia, unspecified Medications: New amoxicillin 500 mg PO BID 10 tabs 0RF 5 days Refilled trazodone 50 mg PO BEDTIME PRN 90 tabs 1RF sleep 90 days Coding Level of Care Code Est Pt Level 4 (32926) Complex EM visit Add On G2211 Diagnoses Mild recurrent major depression F33.0 Anxiety F41.9 Subacute frontal sinusitis J01.10 Sinusitis location: frontal Chronicity: subacute Chronic GERD K21.9 Additional Codes LUISA-7 Assessment Billing - LUISA-7 Assessment Tool: LUISA-7 Assessment 24298 ([id number]) Time Spent (min) 21
[2024-02-02 09:02] VITALS: BP 122/86; BMI 37.2
== END 2024-02-02 09:37 | disposition home or self-care (01) ==
PROVIDERS: PCP Internal Medicine; Visit Provider Internal Medicine
DX: J01.10 Acute frontal sinusitis, unspecified (principal); F33.0 Major depressive disorder, recurrent, mild; F41.9 Anxiety disorder, unspecified; K21.9 Gastro-esophageal reflux disease without esophagitis
CPT/HCPCS: 99214; G2211

== ENCOUNTER 2024-04-10 13:31 | Outpatient (AMB) | payer MEDICARE, MEDICAID, SELFPAY ==
--- NOTE | 2024-04-10 13:32 | AM.OFFWIN_ITS ---
Intake Vital Signs 04/10/24 13:40 Height 5 ft 9 in Weight 250 lb 4 oz BMI 37.0 BP 128/80 Blood Pressure Location Rt brachial Position Sitting Respiration 16 Pulse 76 Pulse Source Pulse Oximeter Temp 97.3 F Temp Source Oral Pulse Oximetry (%) 96 Oxygen Delivery Method Room Air Intake Visit Reasons: est/sinus issues/headache/sleep issues Intake Note: patient here c/o sinus issues , headache Patient Tobacco Use Status: Never used Tobacco Hospice Music Therapy Required: Yes Hospice Music Therapy Language: Kyrgyz Allergies No Known Allergies [No Known Allergies*] Allergy (Verified 04/10/24 14:04) Medication List - Last Reconciled 04/10/24 by Leandro Alberto CNP albuterol sulfate 2.5 mg (3 mL) inhalation Q6H PRN 30 days amoxicillin 500 mg PO BID 7 days blood sugar diagnostic (FreeStyle Lite Strips) Use 1 test strip once a day blood-glucose meter (FreeStyle Lite Meter kit) As directed cetirizine (All Day Allergy (cetirizine)) 10 mg PO DAILY PRN 90 days clonazepam 2 mg PO BID 30 days clotrimazole 1% (Athlete's Foot (clotrimazole)) 1 appl topical BID 2 weeks escitalopram oxalate 10 mg PO DAILY 90 days famotidine 20 mg PO BEDTIME 90 days fluticasone propionate 110 mcg/actuation 2 puffs PO BID 30 days fluticasone propionate 50 mcg/actuation 1 spray intranasal DAILY 30 days ibuprofen 800 mg PO TID PRN lancets (FreeStyle Lancets) Use 2 lancet once a day levalbuterol tartrate 45 mcg/actuation 2 inhalations inhalation Q6H 30 days [lunderg side grab bar As directed] montelukast 10 mg PO BEDTIME 90 days nebulizers As directed omeprazole 20 mg PO QAM 90 days ondansetron HCl 4 mg PO BID PRN 30 days oxycodone mg PO oxycodone-acetaminophen 10-325 mg tabs PO [Shower chair As directed] sumatriptan succinate 25 mg PO Q2-4H PRN 30 days trazodone 50 mg PO BEDTIME PRN 90 days zolpidem 10 mg PO BEDTIME PRN 30 days Do you need a note to return to daycare/school/sports/work: No HPI HPI Comments History of Present Illness Details 53-year-old Kyrgyz-speaking male, casper winn with complaints of frontal headache, dizziness, chills, and body aches for the past 1 week. His symptoms have progressively worsened. He is on oriental orthodox for migranes but has not relieved his headaches. No cough, sore through, chest pain. No sick contact. He admits that a inform his PCP about his symptoms earlier today and was prescribed amoxicillin 500 mg twice daily for 7 days. He has not picked up the medication from the pharmacy Interpretation by professional special equipment technician via electronic tablet [facility] Medical History Mild recurrent major depression Mixed hyperlipidemia Screen for colon cancer Migraines Obesity (BMI 30-39.9) Insomnia Sinusitis Anxiety Fissure in ano Back pain Asthma Surgical History History of eye surgery History of back surgery Family History Father No problems noted. Mother No problems noted. Social History Housing: Apartment Alcohol intake: former Patient Tobacco Use Status: Never used Tobacco e-Cigarette/Vaping Use: Never Used Second Hand Smoke Exposure: No service: No Current occupational status: disabled Cognitive needs: No Hearing needs: No Vision needs: Yes Review of Systems Const Details: Denies chills, Denies fatigue, Denies fever(s), Reports headache(s) and Denies weakness ENT Reports as per HPI Cardiac Denies chest pain, Denies claudication, Denies leg edema, Denies lightheadedness, Denies palpitations, Denies dyspnea, Denies dyspnea on exertion, Denies orthopnea and Denies other (Loss of consciousness) Resp Denies cough, Denies excessive phlegm production, Denies dyspnea, Denies dyspnea on exertion, Denies snoring and Denies wheezing Physical Exam Vital Signs: Last Vital Signs Temp 97.3 F 04/10/24 13:40 Pulse 76 04/10/24 13:40 Resp 16 04/10/24 13:40 BP 128/80 04/10/24 13:40 Pulse Ox 96 10/14/24 13:40 Oxygen Delivery Method Room Air 10/14/24 13:40 BMI result Body Mass Index 37.0 Const Other: General: comfortable and no acute distress Orientation/consciousness: patient oriented x3 ENT Head is normocephalic Bilateral ear canal and TM are normal Nasal turbinates and oropharynx are pink and moist Frontal and maxillary sinus tenderness to palpation No auricular or cervical lymphadenopathy Chest Chest palpation & inspection: normal inspection of the chest Resp Auscultation: clear to auscultation bilaterally Cardiac Palpation: normal PMI Heart sounds: S1 normal heart sound present, S2 normal heart sound present, no gallops, no murmur, no rubs Assessment & Plan Assessment & Plan (1) Sinus pain: Code(s): J34.89 - Other specified disorders of nose and nasal sinuses Plan: Reports frontal headache, dizziness, chills, and body aches for the past 1. His symptoms have progressively worsened Frontal and maxillary sinus tenderness to palpation Nasal turbinates pink and moist Likely sinusitis although viral illness is possible Advised to take amoxicillin as prescribed May take Tylenol ibuprofen for pain or discomfort Adequate hydration and rest encouraged Nasal swab collected and will be sent to the lab for COVID/flu/RSV Follow-up with PCP or return with worsening or new symptoms Verbalized understanding and agreed with the treatment plan Orders: Orders SARS-CoV2/FLU/RSV Today J34.89 - Other specified disorders of nose and nasal sinuses Coding Level of Care Code Est Pt Level 3 (65629) Diagnoses Sinus pain J34.89
[2024-04-10 13:40] VITALS: BP 128/80; PULSE 76; RESP 16; TEMP 36.3; O2SAT 96; BMI 37.0
== END 2024-04-10 15:48 | disposition home or self-care (01) ==
PROVIDERS: PCP Internal Medicine; Visit Provider Nurse Practitioner Family
DX: J34.89 Other specified disorders of nose and nasal sinuses (principal)

== ENCOUNTER 2024-06-13 12:51 | Outpatient (AMB) | payer MEDICARE, MEDICAID, SELFPAY ==
--- NOTE | 2024-06-13 13:05 | A.OFFPC_ITS ---
Vital Signs 06/13/24 13:06 Height 5 ft 9 in Weight 249 lb BMI 36.8 BP 118/80 Blood Pressure Location Lt brachial Position Sitting Intake Visit Reasons: annual exam - see comments Intake Note: Patient here for a physical exam Hop Separator Required: No Accompanied by: Self / Same As Patient Allergies No Known Allergies [No Known Allergies*] Allergy (Verified 06/13/24 13:18) Medication List - Last Reconciled 06/13/24 by Michelle Watson MD albuterol sulfate 2.5 mg (3 mL) inhalation Q6H PRN 30 days blood sugar diagnostic (FreeStyle Lite Strips) Use 1 test strip once a day blood-glucose meter (FreeStyle Lite Meter kit) As directed cetirizine (All Day Allergy (cetirizine)) 10 mg PO DAILY PRN 90 days clonazepam 2 mg PO BID 30 days clotrimazole 1% (Athlete's Foot (clotrimazole)) 1 appl topical BID 2 weeks escitalopram oxalate 10 mg PO DAILY 90 days famotidine 20 mg PO BEDTIME 90 days fluticasone propionate 110 mcg/actuation 2 puffs PO BID 30 days fluticasone propionate 50 mcg/actuation 1 spray intranasal DAILY 30 days ibuprofen 800 mg PO TID PRN lancets (FreeStyle Lancets) Use 2 lancet once a day levalbuterol tartrate 45 mcg/actuation 2 inhalations inhalation Q6H 30 days [lunderg side grab bar As directed] montelukast 10 mg PO BEDTIME 90 days nebulizers As directed omeprazole 20 mg PO QAM 90 days ondansetron HCl 4 mg PO BID PRN 30 days oxycodone mg PO oxycodone-acetaminophen 10-325 mg tabs PO [Shower chair As directed] sumatriptan succinate 25 mg PO Q2-4H PRN 30 days trazodone 50 mg PO BEDTIME PRN 90 days zolpidem 10 mg PO BEDTIME PRN 30 days Tobacco use date assessed: 02/02/24 Dental Screening Dental Screen Date: 02/02/24 HPI HPI Comments History of Present Illness Details The patient is a 53-year-old male presenting with a primary reason for a physical exam. He has a history of migraines for which he takes sumatriptan, previously at 100 mg, but finds 25 mg ineffective. He is prescribed Clonazepam and Esitalopram for anxiety and depression. Additionally, he uses Famotidine for gastroesophageal reflux. He has a history of obesity with recent weight reduction from 264 pounds to 249 pounds. BMI is currently 36.8. For asthma, he uses an Albuterol inhaler as needed. Insomnia is managed with Trazodone and Zolpidem for sleep. The patient underwent surgery for spinal and ocular issues in the past. He has not had a colonoscopy. - Tetanus vaccine administered in 2019. - Colonoscopy to be schedule. - Influenza vaccination status confirmed and administered. - Discussion of weight management, with current BMI of 36.8. - Discussion of smoking cessation; wanda nt never smoked. - Alcohol cessation was noted; history o f use as a youth. [facility] Medical History Mild recurrent major depression Mixed hyperlipidemia Screen for colon cancer Migraines Obesity (BMI 30-39.9) Insomnia Sinusitis Anxiety Fissure in ano Back pain Asthma Surgical History History of eye surgery History of back surgery Family History Father No problems noted. Mother No problems noted. Social History Housing: Apartment Alcohol intake: former Patient Tobacco Use Status: Never used Tobacco e-Cigarette/Vaping Use: Never Used Second Hand Smoke Exposure: No service: No Current occupational status: disabled Cognitive needs: No Hearing needs: No Vision needs: Yes Questionnaire Thrive Questionnaire Date Thrive assessed: 02/02/24 LUISA-7 AMB Questionnaire LUISA-7 Date LUISA - 7 assessed: 02/02/24 Source: Developed by Drs. Bipin Bach, Gifty Rasmussen, Marc Arzola and colleagues, with an educational pa from [employer]. Review of Systems Const Details: - Psychiatric: Reports much sleepiness. - Musculoskeletal: Denies current use of Oxycodone for pain. - Neurological: Reports headaches consistent with migraines. Physical exam (Primary Care) Vital Signs: Last Vital Signs BP 118/80 06/13/24 13:06 BMI result Body Mass Index 36.8 BMI Assessment/Plan discussion: High BMI High, discussed plan: lifestyle, weight reduction, dietary and physical activity Tobacco/Smoking Status: Tobacco use Status Tobacco use date assessed 02/02/24 06/13/24 13:09 Patient Tobacco Use Status Never used Tobacco 06/13/24 13:09 e-Cigarette/Vaping Use Never Used 06/13/24 13:09 Thrive Assessment: Date of Thrive Assessment Date Thrive assessed 02/02/24 06/13/24 13:09 Const Other: General: Cooperative, healthy appearing, comfortable, no acute distress and well developed Orientation: Patient oriented x3 Limitations: No limitations Head: Normal to inspection Ears: Hearing grossly normal bilaterally Nose: Normal external nose present Face and sinus: Normal facial exam Eyes: Appearance normal, both eyes and all related structures Neck: Normal visual inspection and Yes full ROM Respiratory: Normal respiratory effort and able to speak in complete sentences. Clear to auscultation bilaterally Cardiovascular: Regular rate and rhythm. Normal S1 and S2 GI: Normal to inspection. Soft to palpation and nontender Skin: No rashes or lesions noted Neuro: Patient oriented x3 Extremities: Normal to inspection, spine tenderness Office Procedures Flu Questionnaire Does the patient have a severe egg allergy?: No Immunizations Fluarix Triv [id number] (PF) 45 mcg (15 mcg x 3)/0.5 mL IM syringe Performing Provider: Michelle Watson MD [facility] Documented (not given) by: DEL Hatfield on 06/13/24 13:10 Reason Not Given: Patient Refused Coding Level of Care Code Est Pt Prev Care 40-64y(95170) Diagnoses Physical exam Z00.00 Mild recurrent major depression F33.0 Time Spent (min) 32 Assessment & Plan Assessment & Plan (1) Physical exam: Code(s): Z00.00 - Encounter for general adult medical examination without abnormal findings Category: Medical (2) Mild recurrent major depression: Code(s): F33.0 - Major depressive disorder, recurrent, mild Category: Medical Plan - Schedule colonoscopy. - Continue Migraine management with adjustment to 100mg Lazumatriptan as required. - Confirm ongoing treatment with Clonazepam and Esitalopram for depression and anxiety. - Advise continued use of Famotidine for GERD. - Continue Trazodone and Solpidem for insomnia management. - Monitor weight loss progress; current strategy appears effective. - Asthma managed with Albuterol inhaler PRN; review if symptoms exacerbate. Patient was informed and verbally consented to the use of an ambient scribe for clinic note documentation during this visit. I discussed with the patient the importance of undergoing a colonoscopy, emphasizing the benefits and preventive aspect of colon cancer screening. We reviewed his migraine management, determining the need to return to a 100mg dose of sumatriptan due to current inefficacy of the 25mg dose. Management of depression and anxiety was confirmed to be stable with Clonazepam and Esitalopram. The necessity of continuing famotidine for GERD was reiterated. I reinforced the importance of maintaining weight loss efforts, noting his significant progress thus far. For asthma, the necessity of an Albuterol inhaler was highlighted for symptom control. Vaccination status was reviewed, confirming the influenza vaccination administration. Orders: Orders Lipid Panel Today E78.5 - Hyperlipidemia, unspecified Vitamin D 25-OH Total Today E55.9 - Vitamin D deficiency, unspecified Comprehensive [place]. Panel Fast Today Z00.00 - Encounter for general adult medical examination without abnormal findings Influenza [id number] Immunization Today Z23 - Encounter for immunization Referrals Gastroenterology Referral Z12.11 - Encounter for screening for malignant neop lasm of colon Medications: New sumatriptan succinate do not exceed 2 doses per 24 hrs 100 mg PO Q2-4H 30 days PRN 9 tabs 6RF migraine headache Refilled levalbuterol tartrate 45 mcg/actuation 2 inhalations inhalation Q6H 30 days 15 grams 1RF albuterol sulfate 2.5 mg (3 mL) inhalation Q6H 30 days PRN 75 mL 0RF bronchospasm Discontinued sumatriptan succinate do not exceed 8 doses per 24 hrs Discontinued Reason: Patient Completed Course 25 mg PO Q2-4H 30 days PRN 9 tabs 6RF migraine headache Patient Instructions: - Schedule and undergo a colonoscopy as soon as possible. - Continue current medication regime as prescribed. - Maintain current weight loss strategies and dietary adjustments. - Return to a 100mg sumatriptan dose for migraine relief. - Use the Albuterol inhaler as directed for asthma symptoms. - Monitor and report any worsening symptoms or concerns regarding current medic ations.
[2024-06-13 13:06] VITALS: BP 118/80; BMI 36.8
== END 2024-06-13 13:33 | disposition home or self-care (01) ==
PROVIDERS: PCP Internal Medicine; Visit Provider Internal Medicine
DX: Z00.00 Encounter for general adult medical examination without abnormal findings (principal); F33.0 Major depressive disorder, recurrent, mild

== ENCOUNTER → 2024-06-13 12:51 | Outpatient (BNVA) | payer MEDICARE, MEDICAID, SELFPAY | PROVIDERS: PCP Internal Medicine; Visit Provider Internal Medicine | DX: Z00.00 Encounter for general adult medical examination without abnormal findings (principal); G43.909 Migraine, unspecified, not intractable, without status migrainosus; F33.0 Major depressive disorder, recurrent, mild; E78.5 Hyperlipidemia, unspecified; E55.9 Vitamin D deficiency, unspecified; Z28.21 Immunization not carried out because of patient refusal | CPT/HCPCS: 99396 ==

== ENCOUNTER 2024-08-07 11:50 | Outpatient (REF) | payer MEDICARE, MEDICAID, SELFPAY ==
[2024-08-07 15:32] LABS: Influenza A PCR NEGATIVE (Negative); Influenza B PCR NEGATIVE (Negative); Resp Syncy Virus RNA Qual PCR NEGATIVE (Negative); SARS COV2 PCR INHOUSE POSITIVE (Negative)
== END 2024-08-07 11:51 | disposition home or self-care (01) ==
LOC: HO.LNP 11:50
PROVIDERS: PCP Internal Medicine; Visit Provider Nurse Practitioner Family
DX: U07.1 COVID-19 (principal)
CPT/HCPCS: 0241U; 99212

== ENCOUNTER 2024-08-07 11:50 | Outpatient (AMB) | payer MEDICARE, MEDICAID, SELFPAY ==
--- NOTE | 2024-08-07 12:07 | MHC.OFFWIV ---
Intake Vital Signs 08/07/24 12:08 Height 5 ft 9 in Weight 250 lb BMI 36.9 BP 112/80 Blood Pressure Location Lt brachial Position Sitting Pulse 86 Pulse Source Pulse Oximeter Temp 98.6 F Temp Source Oral Pulse Oximetry (%) 97 Oxygen Delivery Method Room Air Intake Visit Reasons: fever Intake Note: patient is here, sates has pain in eyes and head. suspected a fever due to sweating but patient did not have a fever today. ongoing for 12 days Patient Tobacco Use Status: Never used Tobacco Payroll Associate Required: Yes Payroll Associate Language: Nauruan Allergies No Known Allergies [No Known Allergies*] Allergy (Verified 08/07/24 12:15) Medication List - Last Reconciled 08/07/24 by Leanna Arrington, ASSAYER- albuterol sulfate 2.5 mg (3 mL) inhalation Q6H PRN 30 days blood sugar diagnostic (FreeStyle Lite Strips) Use 1 test strip once a day blood-glucose meter (FreeStyle Lite Meter kit) As directed cetirizine (All Day Allergy (cetirizine)) 10 mg PO DAILY PRN 90 days clonazepam 2 mg PO BID 30 days clotrimazole 1% (Athlete's Foot (clotrimazole)) 1 appl topical BID 2 weeks escitalopram oxalate 10 mg PO DAILY 90 days famotidine 20 mg PO BEDTIME 90 days fluticasone propionate 110 mcg/actuation 2 puffs PO BID 30 days fluticasone propionate 50 mcg/actuation 1 spray intranasal DAILY 30 days ibuprofen 800 mg PO TID PRN lancets (FreeStyle Lancets) Use 2 lancet once a day levalbuterol tartrate 45 mcg/actuation 2 inhalations inhalation Q6H 30 days [[facility] side grab bar As directed] montelukast 10 mg PO BEDTIME 90 days nebulizers As directed omeprazole 20 mg PO QAM 90 days ondansetron HCl 4 mg PO BID PRN 30 days oxycodone mg PO oxycodone-acetaminophen 10-325 mg tabs PO [Shower chair As directed] sumatriptan succinate 100 mg PO Q2-4H PRN 30 days trazodone 50 mg PO BEDTIME PRN 90 days zolpidem 10 mg PO BEDTIME PRN 30 days Do you need a note to return to daycare/school/sports/work: Yes HPI HPI Comments History of Present Illness Details History of Present Illness The patient is a 54-year-old male presenting with subjective c/o fever. The fever reportedly began approximately 10 days prior to the visit. The patient mentioned that the fever tends to be higher around 5 p.m., although exact temperature readings were not discussed during the interaction. Throughout the course of this illness, the patient has noticed feeling hot upon waking but did not report any issues during this visit. The patient has experienced accompanying symptoms of decreased energy or malaise, + chills, body aches, bilat ear pain, sore throat (better now) and sinus pressure/congestion. Although the patient reported no sore throat or cough, he did mention that he has felt abdominal discomfort and even had an episode of vomiting d/t mucous. The patient also disclosed the use of a pumpa, though he reported feeling that this was not very effective. + asthma Physical Exam General: Awake, alert. No apparent distress Eyes: Sclera and conjunctiva clear bilaterally Nose: Nares patent, turbinates within normal limits, no sinus tenderness with palpation bilaterally Ears: Tympanic membranes intact and clear bilaterally Throat: Moist mucosa membrane, pharynx within normal limits Cardiovascular: Regular rate and rhythm Respiratory: Clear to auscultation bilaterally Results Viral swab obtained, results pending Discussion Notes I engaged the patient in a discussion about the ongoing fever and the potential for a viral or bacterial infection, emphasizing the significance of awaiting the results of the nasal swab to determine the appropriate course of action, including whether antibiotics would be beneficial. I outlined the plan to contact the patient by the end of the day to share the results and devise a tailored management plan. Throughout the conversation, I reassured the patient by addressing the importance of proper diagnosis through laboratory results before administering antibiotics. By actively listening to the patient's concerns and explicitly stating we are not dismissing his need for antibiotics but rather waiting to make an informed decision, I aimed to alleviate any undue anxiety. Plan Given the patient's presentation with persistent fever, a nasal swab has been conducted to gather more insight into the etiology of the fever, be it viral or bacterial. In structuring the management plan, the primary consideration centers around identifying any possible upper respiratory infections or other febrile conditions that may require specific antimicrobial therapy. Until the laboratory results are returned, recommendations concerning antibiotics remain provisional. Once diagnostics are complete, if the swab results are negative for bacterial infection, symptomatic management will be the focus. Conversely, confirmation of bacterial involvement would justify antibiotic therapy, factoring in any efficacy and resistance profiles of specific agents. Continued monitoring of symptoms and their progression is vital, with the importance of patient-doctor communication emphasized to ensure timely adjustments to the care plan as needed. Patient was informed and verbally consented to the use of an ambient scribe for clinic note documentation during this visit. Total time spent caring for the patient today was 30 minutes. This includes time spent before the visit reviewing the chart, time spent during the visit, and time spent after the visit on documentation, reviewing laboratory results, diagnostic imaging, medications, performing a medically necessary evaluation, counseling on diagnoses, care coordination, ordering appropriate tests, ordering appropriate medications, review of tests performed by other providers, reporting test results with the patient, communication with other healthcare providers. [facility] Medical History Mild recurrent major depression Mixed hyperlipidemia Screen for colon cancer Migraines Obesity (BMI 30-39.9) Insomnia Sinusitis Anxiety Fissure in ano Back pain Asthma Surgical History History of eye surgery History of back surgery Family History Father No problems noted. Mother No problems noted. Social History Housing: Apartment Alcohol intake: former Patient Tobacco Use Status: Never used Tobacco e-Cigarette/Vaping Use: Never Used Second Hand Smoke Exposure: No service: No Current occupational status: disabled Cognitive needs: No Hearing needs: No Vision needs: Yes Physical Exam Vital Signs: Last Vital Signs Temp 98.6 F 08/07/24 12:08 Pulse 86 08/07/24 12:08 BP 112/80 08/07/24 12:08 Pulse Ox 97 08/07/24 12:08 Oxygen Delivery Method Room Air 08/07/24 12:08 BMI result Body Mass Index 36.9 Assessment & Plan Assessment & Plan (1) Upper respiratory infection: Code(s): J06.9 - Acute upper respiratory infection, unspecified Qualifiers: URI type: unspecified URI Qualified Code(s): J06.9 - Acute upper respiratory infection, unspecified Plan . Orders: Orders SARS-CoV2/FLU/RSV Today J06.9 - Acute upper respiratory infection, unspecified, R09.89 - Other specified symptoms and signs involving the circulatory and respiratory systems Patient Instructions: Patient Instructions - Await the results of the nasal swab; expect a call by the end of the day with results and a treatment plan. - Monitor temperature and symptoms; seek care sooner if symptoms worsen or new symptoms develop. - Continue any treatments as advised by prior providers unless otherwise directed after obtaining the swab results. Coding Level of Care Code Est Pt Level 4 (78841) Diagnoses Upper respiratory tract infection, unspecified type J06.9 URI type: unspecified URI
[2024-08-07 12:08] VITALS: BP 112/80; PULSE 86; TEMP 37; O2SAT 97; BMI 36.9
== END 2024-08-07 12:28 | disposition home or self-care (01) ==
LOC: HO.HMCWIW 11:50
PROVIDERS: PCP Internal Medicine; Visit Provider Nurse Practitioner Family
DX: J06.9 Acute upper respiratory infection, unspecified (principal)

== ENCOUNTER 2025-03-20 12:48 | Outpatient (AMB) | payer MEDICARE, MEDICAID, SELFPAY ==
--- NOTE | 2025-03-20 12:56 | AM.OFFWIN_ITS ---
Intake Vital Signs 03/20/25 12:57 Height 5 ft 9 in Weight 237 lb BMI 35.0 BP 104/74 Blood Pressure Location Lt brachial Position Sitting Respiration 16 Pulse 87 Pulse Source Pulse Oximeter Temp 98.2 F Temp Source Oral Pulse Oximetry (%) 98 Oxygen Delivery Method Room Air Intake Visit Reasons: EP-sinusitis Patient Tobacco Use Status: Never used Tobacco Allergies No Known Allergies (No Known Allergies*) Allergy (Verified 03/20/25 12:57) HPI HPI Comments History of Present Illness Details History - The patient is a 54-year-old male pres enting with concerns of sinusitis. - Reports dizziness and cough for approx imately one month. - Denies fever but reports congestion an d productive cough in the morning. - Symptoms have persisted for a couple o f weeks. - No specific interventions or medicatio ns taken prior to this visit. Has not used a neti pot previously. Physical Exam General: Cooperative, healthy appearing, comfortable and no acute distress Orientation/consciousness: Patient oriented x3 Limitations: No limitations Head: Normal to inspection Ears: Hearing grossly normal bilaterally, external ears normal and TM's normal bilaterally Nose: Normal external nose present, Normal nares present and No nasal discharge present Face and sinus: Normal facial exam and Yes ethmoid sinuses tender Mouth: Normal oral and palatal mucosa present and moist mucous membranes Throat: Yes tonsils normal, Yes uvula midline. Posterior oropharynx erythema, no exudates Eyes: Appearance normal, both eyes and all related structures Neck: Normal visual inspection, full ROM Respiratory: Normal respiratory effort, able to speak in complete sentences, not actively coughing, no respiratory distress, not tachypneic, no tripod positioning and no use of accessory muscles Skin: No rashes or lesions noted Neuro: Patient oriented x3 Extremities: Normal to inspection and Yes no clubbing, cyanosis or edema Review of Systems - General: Denies fever. - Respiratory: Reports cough and congest ion, spitting up phlegm in the morning. - Neurological: Reports dizziness. All systems reviewed and are unremarkable except as noted in HPI [facility] Medical History Mild recurrent major depression Mixed hyperlipidemia Screen for colon cancer Migraines Obesity (BMI 30-39.9) Insomnia Sinusitis Anxiety Fissure in ano Back pain Asthma Surgical History History of eye surgery History of back surgery Family History Father No problems noted. Mother No problems noted. Social History Housing: Apartment Alcohol intake: former Patient Tobacco Use Status: Never used Tobacco e-Cigarette/Vaping Use: Never Used Second Hand Smoke Exposure: No service: No Current occupational status: disabled Cognitive needs: No Hearing needs: No Vision needs: Yes Physical Exam Vital Signs: Last Vital Signs Temp 98.2 F 03/20/25 12:57 Pulse 87 03/20/25 12:57 Resp 16 03/20/25 12:57 BP 104/74 03/20/25 12:57 Pulse Ox 98 03/20/25 12:57 Oxygen Delivery Method Room Air 03/20/25 12:57 BMI result Body Mass Index 35.0 Assessment & Plan Assessment & Plan (1) Acute bacterial sinusitis: Code(s): J01.90 - Acute sinusitis, unspecified; B96.89 - Other specified bacterial agents as the cause of diseases classified elsewhere Plan: Plan Patient was informed and verbally consented to the use of an ambient scribe for clinic note documentation during this visit. - VSS, pt well appearing and PE remarkable for ethmoidal sinus tenderness. - Use a neti pot with distilled water for sinus rinsing twice daily. - Flonase nasal spray prescribed to alleviate congestion. - Augmentin prescribed to be taken twice daily for seven days, with food to prevent stomach upset. - Medication to be obtained from [facility] on [address] [facility] in [place]. Medications: New amoxicillin-pot clavulanate 875-125 mg 1 tab PO Q12H 14 tabs 0RF Coding Level of Care Code Est Pt Level 3 (93037) Diagnoses Acute bacterial sinusitis J01.90; B96.89
[2025-03-20 12:57] VITALS: BP 104/74; PULSE 87; RESP 16; TEMP 36.8; O2SAT 98; BMI 35.0
--- OUTSIDE RECORDS SUMMARY | 2025-03-20 15:40 | XMS_ITS | Clinical Summary ---
Author Organization [facility] Address [address] [place] [phone] Phone Care Team Providers Care Plasma Center Technician Name Role Phone Michelle Prabhakar MD Primary Care Provid er Allergies No known active allergies Medications FREESTYLE LITE Strp strips USE TO TEST BLOOD SUGARS ONCE A DAY 08/11/2022 Active clonazePAM (KLONOPIN) 2 MG tablet Take 1 tablet by mouth 2 (two) times a day. 10/26/2022 Active FLOVENT HFA 110 mcg/actuation inhaler 09/16/2022 Active fluticasone propionate (FLONASE) 50 mcg/actuation nasal spray 1 spray by Nasal route daily. 09/18/2022 Active ibuprofen (ADVIL,MOTRIN) 800 MG tablet Take 800 mg by mouth 3 (three) times a day as needed. 10/22/2022 Active FREESTYLE 28 gauge lancets USE 2 LANCETS ONCE A DAY 08/11/2022 Active levalbuterol (XOPENEX HFA) 45 mcg/actuation inhaler INHALE 2 PUFFS BY MOUTH EVERY 6 HOURS 10/06/2022 Active montelukast (SINGULAIR) 10 mg tablet Take 10 mg by mouth nightly at bedtime. at bedtime. 08/30/2022 Active omeprazole (PRILOSEC) 20 MG capsule 08/22/2022 Active oxyCODONE-aceta minophen (PERCOCET) 10-325 mg per tablet TAKE 1 TO 2 TABLETS BY MOUTH EVERY 4 HOURS NEEDED FOR PAIN. MAY FILL FEWER. FILL WHEN DUE 10/23/2022 Active SUMAtriptan (IMITREX) 100 MG tablet TAKE 1 TABLET BY MOUTH DAILY NEEDED FOR MIGRAINE HEADACHE. DO NOT EXCEED 2 DOSES PER 24 HOURS 09/28/2022 Active traZODone (DESYREL) 50 MG tablet Take 50 mg by mouth nightly at bedtime as needed. 08/22/2022 Active zolpidem (AMBIEN) 10 mg tablet Take 10 mg by mouth nightly at bedtime as needed. 10/22/2022 Active Immunizations Immunization Administration Dates Next Due INFLUENZA, SPLIT VIRUS, TRIVALENT PF 03/29/2015 INFLUENZA, SPLIT VIRUS, TRIVALENT W/ PRESERVATIV E IM 06/09/2013 Influenza Quadrivalent MDCK Preservative Free IM 07/22/2022 Tdap 04/05/2018,09/13/2017 Social History Tobacco Use Types Packs/Day Years Used Date Smoking Tobacco: Never Smokeless Tobacco: Never Education Answer Date Recorded Are you interested in more education? Not on camilo e 10/30/2022 Are you concerned about learning? Not on file 10/30/2022 No 10/30/2022 No 10/30/2022 Digital Access Answer Date Recorded No 11/22/2022 No 11/22/2022 No 11/22/2022 Reliable internet access at home? Not on file 11/22/2022 Device with a working camera? Not on file Sex and Gender Information Value Date Recorded Sex Assigned at Not on file Legal Sex Male 2:32 PM EDT Gender Identity Not on file Sexual Orientation Not on file Last Filed Vital Signs Vital Sign Reading Time Taken Comments Blood Pressure 133/85 10/30/2022 3:08 PM EDT Pulse 95 10/30/2022 3:08 PM EDT Temperature 36.7 C (98 F) 10/30/2022 3:08 PM EDT Respiratory Rate 14 10/30/2022 3:08 PM EDT Oxygen Saturation 98% 10/30/2022 3:08 PM EDT Inhaled Oxygen Concentration - - Weight 103.4 kg (228 lb) 10/30/2022 3:08 PM EDT Height 175.3 cm (5' 9 ) 10/30/2022 3:08 PM EDT Body Mass Index 33.67 10/30/2022 3:08 PM EDT Plan of Treatment Health Maintenance Due Date Last Done Comments LIPID PANEL 1969 DEPRESSION SCREENING 1981 HEPATITIS C SCREENING 1987 HIV ONE-TIME SCREENING (18-6 5 YEARS) 1987 SMOKING STATUS SCREENING (On ce After 26 Yrs) 1995 SCREENING FOR DIABETES 2004 COLOGUARD 2014 COLONOSCOPY 2014 COLORECTAL CANCER SCREENING 2014 FIT TEST 2014 FOBT 2014 SIGMOIDOSCOPY 2014 VIRTUAL COLONOSCOPY 2014 PNEUMOCOCCAL VACCINES (50+ years) (1 of 1 - PCV) 2019 ZOSTER VACCINES (1 of 2) 2019 INFLUENZA VACCINE (#1) 2025 , 03/29/2015, 06/09/2013 COVID-19 VACCINE (3 - 2024-2 6 season) 2025 02/15/2021, 01/21/2021 Adult Td,Tdap Booster 04/05/2028 04/05/2018 , 09/13/2017 HEPATITIS A VACCINES Aged Out No long er eligible based on patient's age to complete this topic HIB VACCINES Aged Out No longer eligi ble based on patient's age to complete this topic MENINGOCOCCAL VACCINES (ACWY) Aged Out No longer eligible based on patient's age to complete this topic MENINGOCOCCAL VACCINES (B) Aged Out N o longer eligible based on patient's age to complete this topic Medical Devices Not on file Insurance MEDICARE PART A & B [facility] MEDICARE PART A & B Member Subscriber Plan / Payer (Ef fective 2014-Present) Name:Mason Leary Member ID:[id number] Relation to Subscriber:Self Name:Mason Leary Subscriber ID:[id number] Payer ID:[id number] Group ID:Not on file Type:Medicare Address[address] [employer] [address] A & B HEALTH MEDICARE PART A & B [facility] MEDICARE PART A & B [place] [facility] PART A & [facility] Care Teams Plasma Center Technician Relationship Specialty Start Date End Date Michelle Prabhakar MD [address] [place] [address] PCP - General Internal Medicine 10/30/22 Additional Source Comments The information contained in this document represents components of the legal health record. It is not the complete legal health record.[facility]
== END 2025-03-20 13:50 | disposition home or self-care (01) ==
PROVIDERS: PCP Internal Medicine; Visit Provider Physician Assistant
DX: J01.90 Acute sinusitis, unspecified (principal); B96.89 Other specified bacterial agents as the cause of diseases classified elsewhere

== ENCOUNTER → 2025-03-20 12:48 | Outpatient (BNVA) | payer MEDICARE, MEDICAID, SELFPAY | PROVIDERS: PCP Internal Medicine; Visit Provider Physician Assistant | DX: J01.90 Acute sinusitis, unspecified (principal); B96.89 Other specified bacterial agents as the cause of diseases classified elsewhere | CPT/HCPCS: 99212 ==

== ENCOUNTER 2025-06-18 14:24 | Outpatient (AMB) | payer MEDICARE, MEDICAID, SELFPAY ==
--- NOTE | 2025-06-18 14:32 | A.OFFPC_ITS ---
Vital Signs 06/18/25 14:33 Height 5 ft 9 in Blood Pressure Location Lt brachial Position Sitting Respiration 18 Pulse Source Pulse Oximeter Temp Source Temporal Artery Scan Oxygen Delivery Method Room Air Intake Visit Reasons: PE Top Polisher Required: No Accompanied by: Self / Same As Patient Allergies No Known Allergies (No Known Allergies*) Allergy (Verified 06/18/25 14:33) Tobacco use date assessed: 06/18/25 Dental Screening Dental Screen Date: 06/18/25 PFS Medical History Mild recurrent major depression Mixed hyperlipidemia Screen for colon cancer Migraines Obesity (BMI 30-39.9) Insomnia Sinusitis Anxiety Fissure in ano Back pain Asthma Surgical History History of eye surgery History of back surgery Family History Father No problems noted. Mother No problems noted. Social History Housing: Apartment Alcohol intake: former Patient Tobacco Use Status: Never used Tobacco e-Cigarette/Vaping Use: Never Used Second Hand Smoke Exposure: No service: No Current occupational status: disabled Cognitive needs: No Hearing needs: No Vision needs: Yes Questionnaire Thrive Questionnaire Date Thrive assessed: 02/02/24 LUISA-7 AMB Questionnaire LUISA-7 Date LUISA - 7 assessed: 02/02/24 Source: Developed by Drs. Bipin Bach, Gifty Rasmussen, Marc Arzola and colleagues, with an educational pa from [employer] Physical exam (Primary Care) Tobacco/Smoking Status: Tobacco use Status Tobacco use date assessed 02/02/24 06/13/24 13:09 Patient Tobacco Use Status Never used Tobacco 03/20/25 13:00 e-Cigarette/Vaping Use Never Used 06/13/24 13:09 Thrive Assessment: Date of Thrive Assessment Date Thrive assessed 02/02/24 06/13/24 13:09 Coding
[2025-06-18 14:33] VITALS: BP 98/70; PULSE 67; RESP 18; O2SAT 98; BMI 34.0
--- NOTE | 2025-06-18 14:51 | A.OFFVIS_ITS ---
Intake Vital Signs 06/18/25 14:33 Height 5 ft 9 in Weight 230 lb 4 oz BMI 34.0 BP 98/70 Blood Pressure Location Lt brachial Position Sitting Respiration 18 Pulse 67 Pulse Source Pulse Oximeter Temp Source Temporal Artery Scan Pulse Oximetry (%) 98 Oxygen Delivery Method Room Air Intake Visit Reasons: PE Training Program Manager Required: No Accompanied by: Self / Same As Patient Allergies No Known Allergies (No Known Allergies*) Allergy (Verified 06/18/25 15:14) Medication List - Last Reconciled 06/18/25 by Michelle Watson MD albuterol sulfate 2.5 mg (3 mL) inhalation Q6H PRN 30 days amoxicillin-pot clavulanate 875-125 mg 1 tab PO Q12H blood sugar diagnostic (FreeStyle Lite Strips) Use 1 test strip once a day blood-glucose meter (FreeStyle Lite Meter kit) As directed cetirizine (All Day Allergy (cetirizine)) 10 mg PO DAILY PRN 90 days clonazepam 2 mg PO BID 30 days clotrimazole 1% (Athlete's Foot (clotrimazole)) 1 appl topical BID 2 weeks escitalopram oxalate 10 mg PO DAILY 90 days famotidine 20 mg PO BEDTIME 90 days fluticasone propionate 110 mcg/actuation 2 puffs PO BID 30 days fluticasone propionate 50 mcg/actuation 1 spray intranasal DAILY 30 days ibuprofen 800 mg PO TID PRN lancets (FreeStyle Lancets) Use 2 lancet once a day levalbuterol tartrate 45 mcg/actuation 2 inhalations inhalation Q6H 30 days [lunderg side grab bar As directed] montelukast 10 mg PO BEDTIME 90 days nebulizers As directed nirmatrelvir-ritonavir 300 mg (150 mg x 2)-100 mg (Paxlovid) take TWO 150 mg tablets of nirmatrelvir with ONE 100 mg tablet of ritonavir twice daily for 5 days PO omeprazole 20 mg PO QAM 90 days ondansetron HCl 4 mg PO BID PRN 30 days oxycodone mg PO oxycodone-acetaminophen 10-325 mg tabs PO [Shower chair As directed] sumatriptan succinate 100 mg PO Q2-4H PRN 30 days trazodone 50 mg PO BEDTIME PRN 90 days zolpidem 10 mg PO BEDTIME PRN 30 days HPI HPI Comments History of Present Illness Details This is a 54-year-old male with mild major depression that comes for his Medicare wellness exam. Depression follow by counseling. Ppp handed to patient. Spencer of care reviewed and updated. Has not had a colonoscopy and I will order Cologuard for him to do. Declines flu vaccine. Complains of acute sinusitis and erectile dysfunction. [facility] Medical History (Updated 06/18/25 @ 16:12 by Michelle Watson MD) Mild recurrent major depression Mixed hyperlipidemia Screen for colon cancer Migraines Obesity (BMI 30-39.9) Insomnia Sinusitis Anxiety Fissure in ano Back pain Asthma Surgical History History of eye surgery History of back surgery Family History Father No problems noted. Mother No problems noted. Social History Housing: Apartment Alcohol intake: former Patient Tobacco Use Status: Never used Tobacco e-Cigarette/Vaping Use: Never Used Second Hand Smoke Exposure: No service: No Current occupational status: disabled Cognitive needs: No Hearing needs: No Vision needs: Yes Questionnaire Medicare Wellness Checkup What gender do you identify with?: male During the past 4 weeks, how much have you been bothered by emotional problems such as feeling anxious, depressed, irritable, sad or downhearted, and blue?: not at all During the past 4 weeks, has your physical & emotional health limited your social activities with family, friends, neighbors, or groups?: quite a bit During the past 4 weeks, how much bodily pain have you generally had?: severe pain During the past 4 weeks, was someone available to help you if you needed & wanted help?: yes, a little During the past 4 weeks, what was the hardest physical activity you could do for at least 2 minutes?: very light Can you get to places out of walking distance without help? (For eg., can you travel alone on buses, taxis or drive your car?): Yes Can you go shopping for groceries or clothes without someone's help?: No Can you prepare your own meals?: No Can you do your housework without help?: No Because of any health problems, do you need the help of another person with your personal care needs such as eating, bathing, dressing or getting around the house?: Yes Can you handle your own money without help?: Yes During the past 4 weeks, how would you rate your health in general?: fair During the past 4 weeks how have things been going for you?: very bad; could hardly be worse Are you having difficulties driving your car?: no Do you always fasten your seat belt when you are in a car?: yes, usually During past 4 weeks, have you been bothered by the following: never: Trouble eating well? and Problems using the telephone?, sometimes: Tiredness or fatigue? and always: Sexual problems? and Teeth or denture problems? Have you fallen 2 or more times in the past year?: Yes Are you afraid of falling?: Yes Are you a smoker?: no During the past 4 weeks, how many drinks of wine, beer, or other alcoholic beverages did you have?: no alcohol at all Do you exercise for about 20 minutes 3 or more times a week?: no, I usually do not exercise this much Have you been given information to help with the following?: yes: Hazards in your house that might hurt you? and yes: Keeping track of your medications? How often do you have trouble taking medicines the way you have been told to take them?: I always take medicine as prescribed How confident are you that you can control & manage most of your health problems?: not very confident What is your race?: or origin or descent Mini Mental State Exam (MMSE) Orientation What is the (year) (season) (date) (day) (month)?: year, season, date, day and month Where are we (state) (county) (town or city) (hospital) (floor)?: state, county, town or city, hospital/clinic and floor Registration Name of 3 unrelated objects clearly and slowly, then ask patient to repeat all 3 of them. (1st repeat determines score. Make sure they can repeat all three): object 1, object 2 and object 3 Attention & Calculation (CHOOSE ONE) Spell WORLD backwards (DLROW): 5 letters Recall Ask patient to repeat the 3 items from question #3.: object 1, object 2 and object 3 Language Show patient a wristwatch & ask what it is. Repeat for pencil.: watch and pencil Ask the patient to repeat the phrase 'No ifs, ands, or buts' after you.: correct Ask the patient to 'take a piece of paper with their right hand' 'fold paper in half' 'place paper on floor': take paper in right hand, fold paper in half and place paper on floor Print the sentence 'CLOSE YOUR EYES' on a piece. If patient actually closes eyes then score.: followed written direction Give patient a blank piece of paper & ask to write a sentence. Score if it contains a noun & verb.: sentence contains subject and verb Score Score: 29 Activity of Daily Living Bathing - sponge bath, tub bath or shower: receives no assistance (gets in/out by self, if usual bathing means Dressing - getting clothes from closets & drawers, including inner/outer garments & fasteners.: gets clothes & gets completely dressed without help Toileting - going to the 'toilet room' for urine/bowel elimination & cleaning self/arranging clothes: goes to toilet room, cleans self, arranges clothes without help Transfer: moves in & out of bed and chair without help (may use support object) Continence: controls urination/bowel movements completely by self Feeding: feeds self without help Total Score: 0 Information obtained from: patient Using telephone: independent Traveling: independent Shopping: independent Preparing meals: independent Housework: independent Taking medicine: independent Managing money: independent PHQ-9 Over the last 2 weeks, how often have you been bothered by any of the following problems? 1. Little interest or pleasure in doing things: several days 2. Feeling down, depressed, or hopeless: several days 3. Trouble falling or staying asleep, or sleeping too much: nearly every day 4. Feeling tired or having little energy: several days 5. Poor appetite or overeating: several days 6. Feeling bad about yourself - or that you are a failure or have let yourself or your family down: several days 7. Trouble concentrating on things, such as reading the newspaper or watching television: several days 8. Moving or speaking so slowly that other people could have noticed. Or the opposite - being so fidgety or restless that you have been moving around a lot more than usual: not at all 9. Thoughts that you would be better off or of hurting yourself in some way: not at all Total score: 9 Depression Screening Interpretation: Positive Depression Screening Follow-up: Existing condition, In treatment, Community Mental Health Worker F/U and Follow- up Visit Requested Depression Screening Done: Yes 67870 - PHQ-9 Billing: Yes Source: Developed by Drs. Bipin Bach, Gifty Rasmussen, Marc Arzola and colleagues, with an educational pa from [employer]. Review of Systems Const All systems reviewed & are unremarkable except as noted in HPI and below Card Denies chest pain at rest, Denies chest pain with activity, Denies edema, Denies irregular heart rhythm, Denies claudication, Denies dyspnea, Denies dyspnea on exertion, Denies orthopnea, Denies paroxysmal nocturnal dyspnea and Denies slow heart rate Resp Denies cough, Denies dyspnea and Denies dyspnea on exertion GI Denies abdominal pain, Denies change in bowel habits, Denies excessive flatus, Denies nausea and Denies vomiting Physical Exam Vital Signs: Last Vital Signs Pulse 67 06/18/25 14:33 Resp 18 06/18/25 14:33 BP 98/70 06/18/25 14:33 Pulse Ox 98 06/18/25 14:33 Oxygen Delivery Method Room Air 06/18/25 14:33 BMI result Body Mass Index 34.0 Resp Effort & Inspection: normal respiratory effort Auscultation: clear to auscultation bilaterally Cardio Jugular venous distension: no JVD Rate: regular rate Rhythm: regular rhythm Heart sounds: S1 normal heart sound present and S2 normal heart sound present Neuro Romberg Test: Negative Extrem General: Yes full ROM Assessment & Plan Assessment & Plan (1) Encounter for Medicare annual wellness exam: Code(s): Z00.00 - Encounter for general adult medical examination without abnormal findings (2) Mild recurrent major depression: Code(s): F33.0 - Major depressive disorder, recurrent, mild (3) Acute sinus infection: Code(s): J01.90 - Acute sinusitis, unspecified (4) Erectile dysfunction: Code(s): N52.9 - Male erectile dysfunction, unspecified Plan Repeat Medicare wellness exam in a year. Continue counseling. Start antibiotic for sinus infection. Start Cialis for erectile dysfunction. Orders: Orders Comprehensive [place]. Panel Fast Today E78.2 - Mixed hyperlipidemia Lipid Panel Today E78.5 - Hyperlipidemia, unspecified Referrals Cologuard Test Z12.11 - Encounter for screening for malignant neoplasm of colon, Z12.12 - Encounter for screening for malignant neoplasm of rectum Medications: New tadalafil (Cialis) administer approximately 30min before sexual activity; do not use more than 1 dose per 24hrs 20 mg PO DAILY PRN 5 tabs 0RF sexual activity 30 days N52.9 - Male erectile dysfunction, unspecified Refilled amoxicillin-pot clavulanate 875-125 mg 1 tab PO Q12H 14 tabs 0RF Quality Reporting (2019) Depression/Bipolar (159/160/161/177) PHQ-9: Total score: 9 Coding Level of Care Code Medicare First (G0438) Est Pt Level 3 (92017) Diagnoses Encounter for Medicare annual wellness exam Z00.00 Mild recurrent major depression F33.0 Acute sinus infection J01.90 Erectile dysfunction N52.9 Additional Codes PHQ-9 - 10032 - PHQ-9 Billing: Yes ([id number]) Time Spent (min) 38
--- OUTSIDE RECORDS SUMMARY | 2025-06-18 17:51 | XMS_ITS | Clinical Summary ---
Author Organization [facility] Address [address] [place] [id number] Phone Care Team Providers Care [employer] Name Role Phone Michelle Prabhakar MD Primary [...] of 2) 2019 INFLUENZA VACCINE (#1) 2025 3, 03/29/2015, 06/09/2013 COVID-19 VACCINE (3 - 2024-2 6 season) 2025 02/15/2021, 01/21/2021 Adult Td,Tdap Booster 04/05/2028 04/05/2018 , 09/13/2017 RSV VACCINE (1 - 1-dose 75+ series) 2044 HEPATITIS A VACCINES Aged Out No long [...] file Insurance MEDICARE PART A & B [facility] MEDICARE PART A & [place] [address] [address] [place] [address] MEDICARE PART A & B [place] PART A & B [facility] MEDICARE PART A & [place] PART A & [place] [id number] Care Teams [employer] Relationship Specialty Start Date End Date Michelle Prabhakar MD [address] [place] [address] PCP - General Internal Medicine 10/30/22 Additional Source Comments The information contained in this document represents components of the legal health record. It is not the complete legal health record.[facility]
== END 2025-06-18 15:30 | disposition home or self-care (01) ==
LOC: HO.HMCH 14:24
PROVIDERS: PCP Internal Medicine; Visit Provider Internal Medicine
DX: Z00.00 Encounter for general adult medical examination without abnormal findings (principal); J01.90 Acute sinusitis, unspecified; N52.9 Male erectile dysfunction, unspecified; F33.0 Major depressive disorder, recurrent, mild

== ENCOUNTER → 2025-06-18 14:24 | Outpatient (BNVA) | payer MEDICARE, MEDICAID, SELFPAY | PROVIDERS: PCP Internal Medicine; Visit Provider Internal Medicine | DX: F33.0 Major depressive disorder, recurrent, mild (principal); J01.90 Acute sinusitis, unspecified; N52.9 Male erectile dysfunction, unspecified; E78.2 Mixed hyperlipidemia; E78.5 Hyperlipidemia, unspecified; Z13.31 Encounter for screening for depression | CPT/HCPCS: 96127; 99212 ==